=== PATIENT | male | born 1990 | race African-American/Black ===

== ENCOUNTER 2018-03-15 11:29 | Observation (INO) ==
[2018-03-15] MEDS ORDERED: ONDANSETRON 4 MG/2 ML VIAL IV STA (12:12)
[2018-03-15] MEDS ORDERED: SODIUM CHLORIDE 0.9% 2,000 ML IV STA (12:12)
[2018-03-15 12:24] LABS: Basophils % 0.1 % (0.0-0.8); Eosinophils # 0.1 10*3/uL (0.0-0.87); Hematocrit 40.7 VOL% (42.0-52.0); Immature Granulocytes % 0.3 %; Immature Granulocytes Absolute 0.02 #; Lymphocytes # 1.5 10*3/uL (1.4-4.0); Lymphocytes % 19.2 % (21.2-54.2); Mean Corpuscular HGB Conc 31.9 GM/DL (32-36); Mean Corpuscular Hemoglobin 27 PG (27-34); Mean Corpuscular Volume 83.2 FL (87-102); Mean Platelet Volume 10.6 FL (9.6-12.0); Monocytes # 0.9 10*3/uL (0.11-0.8); Neutrophils # 5.4 10*3/uL (1.4-7.4); Neutrophils % 68.4 % (38.7-73.9); Platelet Count 182 T/CUMM (130-400); Red Blood Count 4.89 MC/CUMM (3.8-5.5); Red Cell Distribution Width 12.9 % (9.3-17.3); White Blood Count 7.9 T/CUMM (4-12)
[2018-03-15 12:41] LABS: Albumin 3.6 G/DL (3.4-5.0); Bilirubin,Total 0.5 MG/DL (0.2-1.0); Calcium 8.2 MG/DL (8.5-10.1); Potassium 3.4 MMOL/L (3.5-5.1); Total Protein 7.6 G/DL (6.4-8.3)
[2018-03-15] MEDS ORDERED: chlorproMAZINE INJ 25 MG in SODIUM CHLORIDE 0.9% 100 ML IV STA (13:18)
[2018-03-15 15:28] LABS: Apearance,Urine CLEAR (Clear); Bilirubin,Urine Negative (Negative); Blood, Urine Negative (Negative); Glucose,Urine (UA) Negative (Negative); Ketones,Urine 80 mg/dL (Negative); Mucus,Urine Occasional /LPF (Occasional); Nitrite,Urine Negative (Negative); Protein,Urine 30 MG/DL; RBC,Urine 1 /HPF (0-4); Squamous Epithelial Cell,Urine Occasional /HPF (0-10); Urine Color Yellow (Yellow); Urine Specific Gravity 1.029 (1.001-1.035); Urine Urobilinogen < 2.0 EU/DL (0.2-1.0); WBC,Urine 1 /HPF (0-6)
[2018-03-15] MEDS ORDERED: ZALEPLON 5 MG CAPSULE PO PRN (15:33)
[2018-03-15] MEDS ORDERED: SODIUM CHLORIDE 0.9% 1,000 ML IV SCH (16:00)
[2018-03-15] MEDS ORDERED: diphenhydrAMINE 50 MG/1 ML VIAL IV PRN (16:37)
[2018-03-15] MEDS ORDERED: ZIPRASIDONE 20 MG/1 ML VIAL IM PRN (16:37)
[2018-03-15] MEDS ORDERED: PROMETHAZINE INJ 25 MG in SODIUM CHLORIDE 0.9% 50 ML IV PRN (16:37)
[2018-03-15] MEDS ORDERED: HALOPERIDOL 5 MG/ML AMP IM PRN (16:37)
[2018-03-15] MEDS: METOCLOPRAMIDE 10 MG/2 ML VIAL IV SCH ×2 (17:57→23:45)
[2018-03-15] MEDS: DEXTROSE 5% NACL 0.9% 1,000 ML IV SCH (17:57)
[2018-03-15 19:28] LABS: Hematocrit 36.4 VOL% (42.0-52.0); Hemoglobin 11.7 GM/DL (14.0-18.0)
[2018-03-15 22:02] LABS: Hematocrit 34.3 VOL% (42.0-52.0); Hemoglobin 11.1 GM/DL (14.0-18.0)
[2018-03-15] MEDS: MORPHINE 4 MG/1 ML VIAL IV PRN (23:28)
[2018-03-16] MEDS: METOCLOPRAMIDE 10 MG/2 ML VIAL IV SCH (06:01)
[2018-03-16] MEDS: DEXTROSE 5% NACL 0.9% 1,000 ML IV SCH ×3 (06:02→17:40)
[2018-03-16] MEDS: MORPHINE 4 MG/1 ML VIAL IV PRN ×2 (06:07→22:57)
[2018-03-16 07:19] LABS: Basophils % 0.4 % (0.0-0.8); Eosinophils # 0.2 10*3/uL (0.0-0.87); Eosinophils % 3.9 % (0.00-10.9); Hematocrit 32.8 VOL% (42.0-52.0); Hemoglobin 10.2 GM/DL (14.0-18.0); Immature Granulocytes % 0.2 %; Immature Granulocytes Absolute 0.01 #; Lymphocytes # 2.2 10*3/uL (1.4-4.0); Lymphocytes % 38.3 % (21.2-54.2); Mean Corpuscular HGB Conc 31.1 GM/DL (32-36); Mean Corpuscular Hemoglobin 26 PG (27-34); Mean Corpuscular Volume 84.8 FL (87-102); Mean Platelet Volume 10.7 FL (9.6-12.0); Monocytes # 0.7 10*3/uL (0.11-0.8); Monocytes % 12.7 % (1.7-12.7); Neutrophils # 2.5 10*3/uL (1.4-7.4); Neutrophils % 44.5 % (38.7-73.9); Platelet Count 155 T/CUMM (130-400); Red Blood Count 3.87 MC/CUMM (3.8-5.5); White Blood Count 5.6 T/CUMM (4-12)
[2018-03-16 07:20] LABS: Hematocrit 32.6 VOL% (42.0-52.0); Hemoglobin 10.2 GM/DL (14.0-18.0)
[2018-03-16 07:41] LABS: Calcium 7.5 MG/DL (8.5-10.1); Potassium 3.5 MMOL/L (3.5-5.1)
[2018-03-16] MEDS ORDERED: PANTOPRAZOLE 40 MG VIAL IV SCH (09:00)
[2018-03-16] MEDS ORDERED: PANTOPRAZOLE 40 MG TABLET PO SCH (09:00)
[2018-03-16 09:26] LABS: Hematocrit 32.8 VOL% (42.0-52.0); Hemoglobin 10.2 GM/DL (14.0-18.0)
[2018-03-16] MEDS: PANTOPRAZOLE 40 MG VIAL IV SCH ×2 (09:34→21:18)
[2018-03-16] MEDS: POLYETHYLENE GLYCOL POWDER 17 GM PACK PO SCH (09:38)
[2018-03-16] MEDS: ONDANSETRON 4 MG/2 ML VIAL IV PRN ×2 (10:49→20:47)
[2018-03-16] MEDS: risperiDONE 1 MG TABLET PO SCH ×2 (10:54→21:21)
[2018-03-17] MEDS: DEXTROSE 5% NACL 0.9% 1,000 ML IV SCH ×3 (01:44→23:05)
[2018-03-17] MEDS: ONDANSETRON 4 MG/2 ML VIAL IV PRN ×2 (01:45→06:57)
[2018-03-17] MEDS: MORPHINE 4 MG/1 ML VIAL IV PRN ×3 (02:01→18:32)
[2018-03-17 07:15] LABS: Basophils % 0.4 % (0.0-0.8); Eosinophils # 0.3 10*3/uL (0.0-0.87); Eosinophils % 3.9 % (0.00-10.9); Hematocrit 36.1 VOL% (42.0-52.0); Hemoglobin 11.6 GM/DL (14.0-18.0); Immature Granulocytes % 0.3 %; Immature Granulocytes Absolute 0.02 #; Lymphocytes # 3.8 10*3/uL (1.4-4.0); Lymphocytes % 51.1 % (21.2-54.2); Mean Corpuscular HGB Conc 32.1 GM/DL (32-36); Mean Corpuscular Hemoglobin 27 PG (27-34); Mean Corpuscular Volume 84.9 FL (87-102); Mean Platelet Volume 10.5 FL (9.6-12.0); Monocytes # 0.9 10*3/uL (0.11-0.8); Monocytes % 12.1 % (1.7-12.7); Neutrophils # 2.4 10*3/uL (1.4-7.4); Neutrophils % 32.2 % (38.7-73.9); Platelet Count 184 T/CUMM (130-400); Red Blood Count 4.25 MC/CUMM (3.8-5.5); Red Cell Distribution Width 12.7 % (9.3-17.3); White Blood Count 7.5 T/CUMM (4-12)
[2018-03-17 07:35] LABS: Eosinophils 5 % (0-10); Hypochromasia 1+; Lymphocytes 54 % (20-55); Platelet Estimate Adequate; Segmented Neutrophils 29 % (50-85); Total Cells Counted 100
[2018-03-17] MEDS ORDERED: LIDOCAINE 2% 5 ML VIAL ONE (09:00)
[2018-03-17] MEDS ORDERED: PROPOFOL 200 MG/20 ML VIAL IV ONE (09:00)
[2018-03-17] MEDS: POLYETHYLENE GLYCOL POWDER 17 GM PACK PO SCH (09:48)
[2018-03-17] MEDS: PANTOPRAZOLE 40 MG VIAL IV SCH ×2 (09:56→20:54)
[2018-03-17] MEDS: risperiDONE 1 MG TABLET PO SCH ×2 (11:09→20:53)
[2018-03-18 05:59] LABS: Basophils % 0.3 % (0.0-0.8); Eosinophils # 0.3 10*3/uL (0.0-0.87); Eosinophils % 5.5 % (0.00-10.9); Hematocrit 33.6 VOL% (42.0-52.0); Hemoglobin 10.6 GM/DL (14.0-18.0); Immature Granulocytes % 0.2 %; Immature Granulocytes Absolute 0.01 #; Lymphocytes # 2.1 10*3/uL (1.4-4.0); Lymphocytes % 36.9 % (21.2-54.2); Mean Corpuscular HGB Conc 31.5 GM/DL (32-36); Mean Corpuscular Hemoglobin 26 PG (27-34); Mean Corpuscular Volume 83.8 FL (87-102); Mean Platelet Volume 10.5 FL (9.6-12.0); Monocytes # 0.7 10*3/uL (0.11-0.8); Monocytes % 11.9 % (1.7-12.7); Neutrophils # 2.6 10*3/uL (1.4-7.4); Neutrophils % 45.2 % (38.7-73.9); Platelet Count 201 T/CUMM (130-400); Red Blood Count 4.01 MC/CUMM (3.8-5.5); Red Cell Distribution Width 12.5 % (9.3-17.3); White Blood Count 5.8 T/CUMM (4-12)
[2018-03-18] MEDS: risperiDONE 1 MG TABLET PO SCH (08:35)
[2018-03-18] MEDS: POLYETHYLENE GLYCOL POWDER 17 GM PACK PO SCH (08:35)
[2018-03-18] MEDS: PANTOPRAZOLE 40 MG VIAL IV SCH (08:35)
[2018-03-18] MEDS: DEXTROSE 5% NACL 0.9% 1,000 ML IV SCH ×2 (12:10→13:56)
[2018-03-18 12:56] VITALS: BP 133/70
== END 2018-03-18 14:34 ==
LOC: EDUNIT# → N.ED 11:29 → INTOOBSV 15:33 → SUATTDRO 15:33 → N.EDINP 15:33 → N.5E 17:42
PROVIDERS: ADMIT Family Medicine; ATTEND Internal Medicine